=== PATIENT | male | born 1985 | race Caucasian/White ===

== ENCOUNTER → 2018-12-20 | Outpatient (CLI) | payer SELFPAY ==
[~2018-12-20] MED LIST: NO HOME MEDICATIONS
== END ==
LOC: COL.RAD 15:57
DX: R09.89 Other specified symptoms and signs involving the circulatory and respiratory systems (principal)

== ENCOUNTER 2019-04-30 09:23 | Emergency (ER) | payer SELFPAY ==
[~2019-04-30] VITALS: Ht 170.2 cm; Wt 64.5 kg
[2019-04-30 09:49] VITALS: BP 126/73; TEMP 98.8
[2019-04-30] MEDS ORDERED: PAXIL 20MG20 MG PO (10:32)
[2019-04-30] MEDS ORDERED: NORCO 325 MG-51 TAB PO (11:24)
[2019-04-30 11:58] VITALS: PULSE 88
== END 2019-04-30 11:59 | disposition home or self-care (01) ==
LOC: COL.ER 09:23
DX: S20.211A Contusion of right front wall of thorax, initial encounter (principal); S20.221A Contusion of right back wall of thorax, initial encounter; F17.210 Nicotine dependence, cigarettes, uncomplicated; W00.0XXA Fall on same level due to ice and snow, initial encounter

== ENCOUNTER 2019-05-05 11:46 | Emergency (ER) | payer SELFPAY ==
[~2019-05-05] VITALS: Ht 170.2 cm; Wt 65.0 kg
[~2019-05-05 11:46] MED LIST changes: +NORCO 325 MG-51 TAB PO; +PAXIL 20MG20 MG PO
[2019-05-05 12:03] VITALS: BP 142/97; PULSE 83; TEMP 97.9
== END 2019-05-05 12:49 | disposition home or self-care (01) ==
LOC: COL.ER 11:46
DX: S05.01XA Injury of conjunctiva and corneal abrasion without foreign body, right eye, initial encounter (principal); F32.9 Major depressive disorder, single episode, unspecified; F41.9 Anxiety disorder, unspecified; Z88.0 Allergy status to penicillin; X58.XXXA Exposure to other specified factors, initial encounter

== ENCOUNTER 2019-10-23 17:21 | Emergency (ER) | payer SELFPAY ==
[~2019-10-23] VITALS: Ht 170.2 cm; Wt 65.9 kg
[2019-10-23 17:27] VITALS: BP 130/74; TEMP 98.6
[2019-10-23] MEDS ORDERED: PREDNISONE20 MG PO (17:39)
[2019-10-23 17:48] VITALS: PULSE 95
== END 2019-10-23 17:49 | disposition home or self-care (01) ==
LOC: COL.ER 17:21
DX: L23.7 Allergic contact dermatitis due to plants, except food (principal); F32.9 Major depressive disorder, single episode, unspecified; F41.9 Anxiety disorder, unspecified; F17.210 Nicotine dependence, cigarettes, uncomplicated; Z88.0 Allergy status to penicillin

== ENCOUNTER 2020-03-13 09:42 | Emergency (ER) | payer SELFPAY ==
[~2020-03-13] VITALS: Ht 170.2 cm; Wt 66.4 kg
[~2020-03-13 09:42] MED LIST changes: +PREDNISONE20 MG PO
[2020-03-13 09:47] VITALS: BP 129/55; TEMP 98.4
[2020-03-13 11:03] VITALS: PULSE 89
== END 2020-03-13 11:05 | disposition home or self-care (01) ==
LOC: COL.ER 09:42
DX: S00.83XA Contusion of other part of head, initial encounter (principal); Z88.0 Allergy status to penicillin; Z79.52 Long term (current) use of systemic steroids; Y00.XXXA Assault by blunt object, initial encounter

== ENCOUNTER 2021-04-27 10:45 | Emergency (ER) | payer SELFPAY ==
[~2021-04-27] VITALS: Ht 170.2 cm; Wt 65.9 kg
[2021-04-27 11:13] VITALS: BP 112/68; TEMP 101.5
[2021-04-27] MEDS ORDERED: PREDNISONE20 MG PO (13:15)
[2021-04-27 13:25] VITALS: PULSE 100
== END 2021-04-27 13:30 | disposition home or self-care (01) ==
LOC: COL.ER 10:45
DX: J40 Bronchitis, not specified as acute or chronic (principal); J45.909 Unspecified asthma, uncomplicated; F17.200 Nicotine dependence, unspecified, uncomplicated; Z20.822 Contact with and (suspected) exposure to COVID-19; Z79.52 Long term (current) use of systemic steroids

== ENCOUNTER 2021-06-01 15:31 | Emergency (ER) | payer SELFPAY ==
[~2021-06-01] VITALS: Ht 170.2 cm; Wt 67.3 kg
[2021-06-01 15:39] VITALS: BP 119/75; PULSE 71; TEMP 98
== END 2021-06-01 17:29 | disposition home or self-care (01) ==
LOC: COL.ER 15:31
DX: M25.522 Pain in left elbow (principal)

== ENCOUNTER 2021-07-15 13:03 | Emergency (ER) | payer SELFPAY ==
[~2021-07-15] VITALS: Ht 170.2 cm; Wt 65.9 kg
[2021-07-15 13:08] VITALS: BP 107/58; PULSE 73; TEMP 97.5
== END 2021-07-15 13:54 | disposition left against medical advice (07) ==
LOC: COL.ER 13:03
DX: L23.7 Allergic contact dermatitis due to plants, except food (principal); F17.200 Nicotine dependence, unspecified, uncomplicated
CPT/HCPCS: J2930